=== PATIENT | male | born 2000 | race Caucasian/White ===

== ENCOUNTER 2018-02-10 15:12 | Emergency (ER) | payer OTHER ==
[2018-02-10 15:21] VITALS: BP 151/89
[2018-02-10] MEDS ORDERED: BUFFERED LIDOCAINE 10 ML SYRINGE SUBQ STA (15:37)
--- NOTE | 2018-02-10 16:18 | ED Physician Documentation ---
PD HPI UPPER EXT INJURY - Stated complaint Stated Complaint: HAND LAC - Chief complaint Chief Complaint: Laceration - History obtained from History obtained from: Patient - History of Present Illness Location: Left, Hand Type of injury: Laceration Where injury occurred: Home Timing - onset: Today Timing - duration: Minutes Timing - details: Abrupt onset, Still present Improved by: Rest, Immobilization Worsened by: Moving, Palpating Associated symptoms: No: Weakness, Numbness, Tingling Similar symptoms before: Diagnosis (laceration) Recently seen: Not recently seen - Additonal information Additional information: 17 y/o male cutting open a box has cut the top of his left hand when he slipped. Review of Systems Constitutional: denies: Fever Respiratory: denies: Cough GI: denies: Vomiting Skin: reports: Laceration (s) Musculoskeletal: reports: Extremity pain. denies: Neck pain, Back pain PD PAST MEDICAL HISTORY - Past Medical History Past Medical History: No - Present Medications Home Medications: Ambulatory Orders Medication Instructions Recorded Confirmed Cyclobenzaprine [Flexeril] 1 tab PO TID PRN 02/10/18 02/10/18 Naproxen 250 mg PO TID PRN 02/10/18 02/10/18 - Allergies Allergies/Adverse Reactions: Allergies Allergy/AdvReac Type Severity Reaction Status Date / Time No Known Drug Allergies Allergy Verified 02/10/18 15:21 - Social History Does the pt smoke?: No Smoking Status: Never smoker Does the pt drink ETOH?: No - Immunizations Immunizations are current?: Yes PD ED PE NORMAL - Vitals Vital signs reviewed: Yes (hypertensive ) - General General: Alert and oriented X 3, No acute distress, Well developed/nourished - HEENT HEENT: Atraumatic, PERRL - Respiratory Respiratory: No respiratory distress - Derm Derm: Normal color, Warm and dry, No rash - Extremities Extremities: No deformity, No edema, Other (There is a 2.5cm laceration to the dorsum of the left hand over the web space of the 1st-2nd digits. distal n/v is intact. 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, No motor deficit, No sensory deficit, Normal speech Eye Opening: Spontaneous Motor: Obeys Commands Verbal: Oriented GCS Score: 15 - Psych Psych: Normal mood, Normal affect Results - Vitals Vitals: Vital Signs - 24 hr 02/10/18 15:17 Temperature 36.2 C L Heart Rate 59 L Respiratory 16 Rate Blood Pressure 151/89 H O2 Saturation 100 Oxygen O2 Source Room air Procedures - Laceration (location) left hand Length in cm: 2.5 Wound type: Linear, Into subcut fat, Clean Neurovascular status: Sensory intact, Motor intact, Vascular intact Tendon involvement: Tendon intact Anesthesia: Lidocaine 1%, With bicarb Wound Preparation: Hibiclens, Irrigated copiously NS, Wound explored, To the base Skin layer closure: Nylon, Interrupted, Size #-0 - enter number (4-0), Sutures - enter # (4) Other: Patient tolerated well, No complications, Neurovascular intact, Dressing applied, Tetanus UTD Complexity: Simple PD MEDICAL DECISION MAKING - ED course Complexity details: considered differential, d/w patient ED course: 17 y/o male with a 2.5cm lac to the left hand is sutured. - Sepsis Event Vital Signs: Vital Signs - 24 hr 02/10/18 15:17 Temperature 36.2 C L Heart Rate 59 L Respiratory 16 Rate Blood Pressure 151/89 H O2 Saturation 100 Oxygen O2 Source Room air Departure - Departure Disposition: 01 Home, Self Care Clinical Impression: Laceration of left hand Qualifiers: Encounter type: initial encounter Foreign body presence: without foreign body Qualified Code(s): S61.412A - Laceration without foreign body of left hand, initial encounter Condition: Stable Instructions: ED Laceration Hand Follow-Up: [facility] Betancur [Provider Group] Comments: sutures will need to be removed in 7-10 days.
== END 2018-02-10 16:39 | disposition home or self-care (01) ==
LOC: ED 15:12
DX: S61.412A Laceration without foreign body of left hand, initial encounter (principal); W26.8XXA Contact with other sharp object(s), not elsewhere classified, initial encounter; Y93.89 Activity, other specified; Y92.009 Unspecified place in unspecified non-institutional (private) residence as the place of occurrence of the external cause
CPT/HCPCS: 12001; 99282; 99283

== ENCOUNTER 2018-07-16 21:02 | Outpatient (CLI) | payer OTHER | END 2018-07-16 21:03 | disposition EMS.NT | LOC: EMS 21:02 | PROVIDERS: ATTEND Surgery | DX: R55 Syncope and collapse (principal) ==

== ENCOUNTER 2018-07-16 21:47 | Emergency (ER) | payer OTHER ==
[2018-07-16 22:23] LABS: BASOPHILS # (AUTO) 0.1 10^3/uL (0.0-0.1); BASOPHILS % (AUTO) 0.4 %; EOSINOPHILS # (AUTO) 0.1 10^3/uL (0.0-0.7); EOSINOPHILS % (AUTO) 0.6 %; HGB - HEMOGLOBIN 16.4 g/dL (14.0-18.0); LYMPHOCYTES # (AUTO) 3.1 10^3/uL (1.5-3.5); LYMPHOCYTES % (AUTO) 17.4 %; MEAN CORPUSCULAR HEMOGLOBIN 29.6 pg (27.0-31.0); MEAN CORPUSCULAR HGB CONC 32.5 g/dL (32.0-36.0); MEAN CORPUSCULAR VOLUME 91.3 fL (80.0-94.0); MEAN PLATELET VOLUME 7.8 fL (7.4-11.4); MONOCYTES # (AUTO) 0.8 10^3/uL (0.0-1.0); MONOCYTES % (AUTO) 4.8 %; NEUTROPHILS # (AUTO) 13.5 10^3/uL (1.5-6.6); NEUTROPHILS % (AUTO) 76.8 %; PLT - PLATELET COUNT 338 10^3/uL (130-450); RED BLOOD COUNT 5.53 10^6/uL (4.70-6.10); RED CELL DISTRIBUTION WIDTH 13.9 % (12.0-15.0); WHITE BLOOD COUNT 17.6 x10^3/uL (4.8-10.8)
[2018-07-16 22:40] LABS: ALBUMIN 4.5 g/dL (3.2-5.5); ALBUMIN/GLOBULIN RATIO 1.6 (1.0-2.2); BILIRUBIN,TOTAL 0.6 mg/dL (0.2-1.0); CREATININE 1.1 mg/dL (0.6-1.2); TOTAL PROTEIN 7.4 g/dL (6.7-8.2)
[2018-07-16 22:44] LABS: CALCIUM 8.8 mg/dL (8.5-10.3)
--- NOTE | 2018-07-16 23:16 | ED Physician Documentation ---
PD HPI SYNCOPE - Stated complaint Stated Complaint: SYNCOPE - Chief complaint Chief Complaint: Neuro - History obtained from History obtained from: Patient - History of Present Illness Witnessed: Witnessed Timing - onset: Today (approximately 30-40 minutes [employer]LECT[employer]PA[employer]) Duration: Minutes Preceding symptoms: Vision changes, Diaphoresis, Abdominal pain, Light headed, Generalized weakness Contributing factors: Just stood up Injury occurred: None Pain level max: 0 Pain level now: 0 Similar symptoms before: Has not had sx before Recently seen: Not recently seen - Additional information Additional information: 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 He stood up and walked to toilet but became lightheaded, dizzy, vision became blurred, he became diaphoretic and had generalized weakness. He then had a syncopal episode with LOC of approximately 5 seconds, witnessed by other [employer] staff. He subsequently fully recovered to return to baseline and presents to ED asymptomatic. Medics found patient initially hypotensive with SBP in the 70s but subsequent readings were normotensive without intervention Review of Systems Constitutional: reports: Sweats. denies: Fever, Chills Eyes: reports: Decreased vision (blurry vision immediately preceding event, resolved) Cardiac: reports: Reviewed and negative Respiratory: reports: Reviewed and negative GI: reports: Abdominal Pain (cramping, resolved). denies: Nausea, Vomiting Musculoskeletal: denies: Neck pain, Back pain, Extremity pain Neurologic: reports: Generalized weakness (resolved), Syncope, LOC. denies: Focal weakness, Numbness, Headache, Head injury PD PAST MEDICAL HISTORY - Past Medical History Past Medical History: No - Past Surgical History Past Surgical History: No - Present Medications Home Medications: Ambulatory Orders Medication Instructions Recorded Confirmed No Known Home Medications 07/16/18 07/16/18 - Allergies Allergies/Adverse Reactions: Allergies Allergy/AdvReac Type Severity Reaction Status Date / Time No Known Drug Allergies Allergy Verified 07/16/18 21:56 - Social History Does the pt smoke?: Yes Smoking Status: Current every day smoker Does the pt drink ETOH?: No Does the pt have substance abuse?: No - Immunizations Immunizations are current?: Yes - POLST Patient has POLST: No PD ED PE NORMAL - Vitals Vital signs reviewed: Yes - General General: Alert and oriented X 3, No acute distress, Well developed/nourished - HEENT HEENT: Atraumatic, PERRL, EOMI, Moist mucous membranes - Neck Neck: No bony TTP - Cardiac Cardiac: RRR, No murmur, No gallop, No rub - Respiratory Respiratory: No respiratory distress, Clear bilaterally - Abdomen Abdomen: Soft, Non tender - Back Back: No spinal TTP - Derm Derm: Normal color, Warm and dry - Extremities Extremities: No tenderness to palpate, Normal ROM s pain - Neuro Neuro: Alert and oriented X 3, 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, No motor deficit, No sensory deficit Eye Opening: Spontaneous Motor: Obeys Commands Verbal: Oriented GCS Score: 15 Results - Vitals Vitals: Oxygen O2 Source Room air - EKG (time done) No standard instances Rate: Rate (enter#) (58) Rhythm: NSR [place]: Normal Intervals: Normal MS QRS: Normal Ischemia: ST elevation c/w repol - Labs Labs: Laboratory Tests 07/16/18 07/16/18 22:19 22:19 WBC 17.6 H RBC 5.53 Hgb 16.4 Hct 50.5 MCV 91.3 MCH 29.6 MCHC 32.5 RDW 13.9 Plt Count 338 MPV 7.8 Neut # (Auto) 13.5 H Lymph # (Auto) 3.1 [place] # (Auto) 0.8 Eos # (Auto) 0.1 Baso # (Auto) 0.1 Absolute Nucleated RBC 0.00 Nucleated RBC % 0.0 Sodium 139 Potassium 3.7 Chloride 102 Carbon Dioxide 27 Anion Gap 10.0 BUN 16 Creatinine 1.1 Estimated GFR (MDRD) 85 L Glucose 110 H Calcium 8.8 Total Bilirubin 0.6 AST 26 ALT 14 Alkaline Phosphatase 68 Total Protein 7.4 Albumin 4.5 Globulin 2.9 Albumin/Globulin Ratio 1.6 Lipase 35 PD MEDICAL DECISION MAKING - ED course Complexity details: reviewed results, re-evaluated patient, considered differential, d/w patient ED course: leukocytosis likely reaction (demarginalization) to the syncopal episode rather than associated with etiology; there is nothing on the HPI, ROS, or physical exam to suggest current/active infection. He is asymptomatic on initial evaluation as well as reevaluation prior to d/c. Medic report indicates both blood pressure and pulse were particularly low on initial assessment, c/w vasovagal episode. However, I advised him to f/u with PMD to ascertain whether further testing is recommended (no further testing is indicated emergently at this time) Departure - Departure Disposition: 01 Home, Self Care Clinical Impression: Syncope Qualifiers: Syncope type: unspecified Qualified Code(s): R55 - Syncope and collapse Condition: Good Instructions: ED Syncope Vasovagal, ED Fainting Unkn Cause Follow-Up: [facility] Betancur [Provider Group] Discharge Date/Time: 07/16/18 23:47
[2018-07-16 23:43] VITALS: BP 120/67
== END 2018-07-16 23:47 | disposition home or self-care (01) ==
LOC: EDUNIT# → ED 21:47
DX: R55 Syncope and collapse (principal); F17.200 Nicotine dependence, unspecified, uncomplicated
CPT/HCPCS: 36415; 80053; 83690; 85025; 93005; 99283; 99284

== ENCOUNTER 2019-04-29 12:06 | Emergency (ER) | payer OTHER ==
--- NOTE | 2019-04-29 14:26 | ED Physician Documentation ---
PD HPI BACK INJURY - Stated complaint Stated Complaint: BACK MUSCLE PAIN - History obtained from History obtained from: Patient - History of Present Illness Location: Lower Type of injury: Fall Where injury occurred: Other (snow embankment at [place] while sledding on sleds. He says he hit a small jump/mound of snow and launched up in air a few feet and landed down and to right on lower back, with pain on the impact of it. Has had pain TL and lumbar area since. No lower ext paresis nor paresthesias.) Timing - onset: Yesterday Timing - duration: Days Timing - details: Abrupt onset, Still present Quality: Pain, Sharp, Aching Worsened by: Moving, Palpating Associated symptoms: No: Fever, Weakness, Numbness, Incontinent of urine Contributing factors: No: Anticoagulated, Work related Similar symptoms before: Has not had sx before Recently seen: Not recently seen Review of Systems Constitutional: denies: Fever, Chills Nose: denies: Rhinorrhea / runny nose, Congestion Throat: denies: Sore throat Respiratory: denies: Cough GI: denies: Abdominal Pain, Nausea, Vomiting, Diarrhea : denies: Hematuria Skin: denies: Abrasion (s), Laceration (s) Musculoskeletal: reports: Back pain. denies: Neck pain, Extremity pain Neurologic: reports: Headache. denies: Focal weakness, Numbness, Altered mental status PD PAST MEDICAL HISTORY - Past Surgical History Past Surgical History: No - Present Medications Home Medications: Ambulatory Orders Medication Instructions Recorded Confirmed Hydrocodone/Acetaminophen [[place] 1 each PO Q6H PRN #15 tablet 04/29/19 5-325 Tablet] Ibuprofen [Motrin] 600 mg PO TID PRN #25 tab 04/29/19 Tizanidine HCl 4 mg PO TID PRN #25 capsule 04/29/19 - Allergies Allergies/Adverse Reactions: Allergies Allergy/AdvReac Type Severity Reaction Status Date / Time No Known Drug Allergies Allergy Verified 04/29/19 12:12 - Social History Does the pt smoke?: Yes Smoking Status: Current every day smoker Does the pt drink ETOH?: No Does the pt have substance abuse?: No - Immunizations Immunizations are current?: Yes - POLST Patient has POLST: No PD ED PE NORMAL - Vitals Vital signs reviewed: Yes - General General: Alert and oriented X 3, No acute distress, Well developed/nourished - HEENT HEENT: Atraumatic - Neck Neck: Supple, no meningeal sign, No bony TTP, No adenopathy - Cardiac Cardiac: RRR, No murmur - Respiratory Respiratory: Clear bilaterally - Abdomen Abdomen: Soft, Non tender, Other - Back Back: No spinal TTP (tender at lower thoracic and TL area to palpation and percussion. No bruising. Also tender paralumbar muscles, more to the right. Guarded ROM. ) - Derm Derm: Normal color, Warm and dry - Neuro Neuro: Alert and oriented X 3, No motor deficit, No sensory deficit, Other (normal knee reflexes. ) Eye Opening: Spontaneous Motor: Obeys Commands Verbal: Oriented GCS Score: 15 Results - Vitals Vitals: Vital Signs - 24 hr 04/29/19 04/29/19 12:12 16:01 Temperature 36.5 C 36.5 C Heart Rate 77 60 Respiratory 18 18 Rate Blood Pressure 143/69 H 118/68 O2 Saturation 99 100 Oxygen O2 Source Room air - Rads (name of study) thoracolumbar CT Radiology: Prelim report reviewed (no Fxs nor acute bony process seen on CT. ), See rad report PD MEDICAL DECISION MAKING - ED course Complexity details: reviewed results, considered differential (had fall while sledding on tube, with injury to TL area of spine. Can get igaming to eval for fracture, compression fx, hematoma, disc process. Can give pain meds as well. ), d/w patient Departure - Departure Disposition: 01 Home, Self Care Clinical Impression: Fall on snow Qualifiers: Encounter type: initial encounter Qualified Code(s): W00.0XXA - Fall on same level due to ice and snow, initial encounter Back contusion Qualifiers: Encounter type: initial encounter Laterality: unspecified laterality Qualified Code(s): S20.229A - Contusion of unspecified back wall of thorax, initial encounter Condition: Stable Record reviewed to determine appropriate education?: Yes Instructions: ED Contusion Back Follow-Up: SONYA BALDWIN [Primary Care Provider] - Prescriptions: Hydrocodone/Acetaminophen [[place] 5-325 Tablet] 1 each PO Q6H PRN #15 tablet PRN Reason: Pain Ibuprofen [Motrin] 600 mg PO TID PRN #25 tab PRN Reason: Pain Tizanidine HCl 4 mg PO TID PRN #25 capsule PRN Reason: Spasms Comments: Heat and gentle stretching for the back to reduce stiffness and spasms. Avoid heavy lifting and repetitive bending. Off work for couple of days. Ibuprofen 3 times a day with food for the next week. Add tizanidine for spasms and stiffness. Add Tylenol or hydrocodone if needed for worse pain. Recheck if not improving well over the next few days. Your x-rays do not show any signs of acute bony abnormality such as compressions, fractures or misalignment. Forms: Activity restrictions Discharge Date/Time: 04/29/19 16:08
[2019-04-29] MEDS ORDERED: IBUPROFEN 600 MG TABLET PO STA (14:41)
[2019-04-29] MEDS ORDERED: ACETAMINOPHEN 325 MG TABLET PO STA (14:41)
--- NOTE | 2019-04-29 15:19 | XRAY Report ---
Reason: fall sledding yesterday; back pain Procedure Date: 04/29/2019 Accession Number: [id number] / [id number] Procedure: XR - Lumbar Spine 2 View CPT Code: Final Report FULL RESULT: EXAM: LUMBOSACRAL SPINE RADIOGRAPHY EXAM DATE: 04/29/2019 02:54 PM. CLINICAL HISTORY: Low back pain. COMPARISONS: None. TECHNIQUE: 2 views. FINDINGS: Alignment: Normal. No spondylolisthesis or scoliosis. Bones: Five [id number] lumbar vertebral bodies are present. No fractures or bone lesions. Disks: Normal. Disk heights are maintained. Facets: No degenerative changes. Sacroiliac Joints: Unremarkable. Soft Tissues: Normal. The visualized bowel gas pattern is normal. IMPRESSION: Normal lumbar spine radiography. [facility]
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
[2019-04-29 16:02] VITALS: BP 118/68
== END 2019-04-29 16:08 | disposition home or self-care (01) ==
LOC: ED 12:06
DX: S20.229A Contusion of unspecified back wall of thorax, initial encounter (principal); W17.89XA Other fall from one level to another, initial encounter; Y93.23 Activity, snow (alpine) (downhill) skiing, snowboarding, sledding, tobogganing and snow tubing; Y92.838 Other recreation area as the place of occurrence of the external cause; F17.200 Nicotine dependence, unspecified, uncomplicated
CPT/HCPCS: 72070; 72100; 99283; 99284; A9270

== ENCOUNTER 2020-02-22 17:11 | Emergency (ER) | payer OTHER ==
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
[2020-02-22 18:49] VITALS: BP 129/74
== END 2020-02-22 18:49 | disposition home or self-care (01) ==
LOC: ED 17:11
DX: S29.9XXA Unspecified injury of thorax, initial encounter (principal); M54.2 Cervicalgia; V47.0XXA Car driver injured in collision with fixed or stationary object in nontraffic accident, initial encounter; Y92.411 Interstate highway as the place of occurrence of the external cause; F17.200 Nicotine dependence, unspecified, uncomplicated
CPT/HCPCS: 72040; 72070; 99283; 99284

== ENCOUNTER 2020-07-17 08:48 | Outpatient (CLI) | payer OTHER ==
--- NOTE | 2020-07-17 17:29 | MRI Report ---
PROCEDURE: Hand LT W/O INDICATIONS: NEURALGIA AND NEURITIS TECHNIQUE: Noncontrast coronal T1 spin echo and T2 fast spin echo with fat saturation, axial proton density fast spin echo and T2 fast spin echo with fat saturation, sagittal T1 spin echo and STIR through the hand and fingers. COMPARISON: None. FINDINGS: Image quality: Excellent. Bones and joints: Surface skin marker is placed over dorsal aspect of second and third metacarpal ba ses. There is no marrow edema. Carpal bones are normally aligned. No fracture or dislocation. Joint s paces are well-preserved. No cortical erosion is seen. Soft tissues: Visualized muscles demonstrate normal bulk and internal signal. No intramuscular mass es identified. No ganglion cysts. Extensor and flexor tendons of left hand and wrist are grossly in tact. No evidence of tenosynovitis. IMPRESSION: Unremarkable MR examination of left hand. No finding to explain patient's symptoms. No MR finding to suggest inflammatory arthropathy. Reviewed by: Marky Aldana MD on 07/17/2020 5:28 PM PST Approved by: Marky Aldana MD on 07/17/2020 5:28 PM PST Station ID: [id number]
== END 2020-07-17 08:49 | disposition home or self-care (01) ==
LOC: DI 08:48
PROVIDERS: ATTEND Orthopaedic Surgery
DX: M79.642 Pain in left hand (principal); M79.2 Neuralgia and neuritis, unspecified